=== PATIENT | male | born 1950 | race Caucasian/White ===

== ENCOUNTER 2020-05-25 08:21 | Day surgery (SDC) | payer MEDICARE, OTHER ==
[2020-05-22 12:13] VITALS: BMI 41.1
[~2020-05-25 08:21] MED LIST: BENZOCAINE SPRAY 1 CAN TOPICAL PRN; HYDROmorphone 0.5 MG/0.5 ML SYRINGE IVP PRN; LACTATED RINGERS 1,000 ML IV SCH; MIDAZOLAM 2 MG/2 ML VIAL IV ONE; SODIUM CHLORIDE 0.9% 1,000 ML IV SCH; fentaNYL (PF) 50 MCG/ML 2 ML AMP IVP ONE
[2020-05-25 08:52] LABS: Glucose,Whole Blood 127 mg/dL (75-99)
[2020-05-25 08:55] VITALS: TEMP 97
[2020-05-25] MEDS ORDERED: SODIUM CHLORIDE 0.9% 500 ML 500 ML IV ONE (09:00)
[2020-05-25 09:01] LABS: Basophils # (A) 0.1 k/uL (0-0.2); Basophils % (A) 1 %; Eosinophils # (A) 0.4 k/uL (0-0.7); Eosinophils % (A) 6 %; HCT 52.8 % (39.0-53.0); HGB 17.3 gm/dL (13.0-17.5); Lymphocytes % (A) 14 %; MCH 28.6 pg (25.0-35.0); MCHC 32.7 g/dL (31.0-37.0); MCV 87.4 fL (80.0-100.0); Mean Platelet Volume 9.1; Monocytes # (A) 0.4 k/uL (0-1.0); Monocytes % (A) 5 %; Neutrophils # (A) 5.5 k/uL (1.3-7.7); Neutrophils % (A) 73 %; Platelet Count 233 k/uL (150-450); RBC 6.04 m/uL (4.30-5.90); RDW 14.3 % (11.5-15.5); WBC 7.5 k/uL (3.8-10.6)
[2020-05-25] MEDS ORDERED: LIDOCAINE 1% INJ 10MG/ML (20 ML MDV) ONE (09:07)
[2020-05-25] MEDS ORDERED: PROPOFOL 10 MG/ML 20 ML VIAL IV ONE (09:07)
[2020-05-25 09:16] LABS: Calcium 8.8 mg/dL (8.4-10.2); Potassium 4.7 mmol/L (3.5-5.1)
[2020-05-25 09:24] LABS: Prothrombin Time 18.1 sec (9.0-12.0)
[2020-05-25 09:27] LABS: INR 1.8 (<1.2)
[2020-05-25] MEDS ORDERED: SODIUM CHLORIDE 0.9% 1,000 ML IV ONE (09:32)
[2020-05-25 09:46] VITALS: RESP 16
--- NOTE | 2020-05-25 12:31 | ECHOT ---
TRANSESOPHAGEAL ECHOCARDIOGRAM INDICATION: Permanent atrial fibrillation to rule out intracardiac thrombus prior to cardioversion. PROCEDURE NOTE: After obtaining informed consent, transesophageal echocardiogram is performed in left lateral position using an Omni plane probe. Local and IV sedation were obtained by the dredge hand. Patient tolerated the procedure well without any obvious immediate complications. FINDINGS: 1. There is no intracardiac thrombus within the left atrial appendage, left atrium, right atrium, right ventricle or right atrium. 2. Left ventricle has normal size and systolic function. 3. Mitral valve appears anatomically normal. There is mild to moderate central mitral regurgitation noted. 4. Interatrial septum, there is no evidence of oday-dc-odkan shunt by color-flow Doppler or naefx-af-jivk shunt by agitated saline contrast study. 5. Right atrium and right ventricle appear enlarged. 6. Aortic root measures normally. 7. Pericardium appears normal. 8. Tricuspid valve shows mild tricuspid regurgitation. 9. Aortic valve is a 3-leaflet valve. There is no aortic stenosis or regurgitation. CONCLUSION: 1. No intracardiac thrombus number. 2. Enlarged right atrium and right ventricle. PLAN: The patient was to undergo cardioversion, but his INR came back at 1.8 due to which the cardioversion was canceled. The patient's Coumadin dose is being adjusted on discharge. MMODL / IJN: [id number] /
[2020-05-25 17:50] VITALS: BP 130/79; PULSE 70
== END 2020-05-25 12:39 | disposition home or self-care (01) ==
LOC: CATHCVL 08:21
PROVIDERS: ATTEND Internal Medicine Cardiovascular Disease
DX: I48.21 Permanent atrial fibrillation (principal); I08.1 Rheumatic disorders of both mitral and tricuspid valves; I10 Essential (primary) hypertension; E11.9 Type 2 diabetes mellitus without complications; K21.9 Gastro-esophageal reflux disease without esophagitis; E07.9 Disorder of thyroid, unspecified; K08.409 Partial loss of teeth, unspecified cause, unspecified class; E78.5 Hyperlipidemia, unspecified; Z79.890 Hormone replacement therapy; Z79.899 Other long term (current) drug therapy; Z79.84 Long term (current) use of oral hypoglycemic drugs; Z88.8 Allergy status to other drugs, medicaments and biological substances; Z88.2 Allergy status to sulfonamides; Z98.890 Other specified postprocedural states; Z86.69 Personal history of other diseases of the nervous system and sense organs; Z85.819 Personal history of malignant neoplasm of unspecified site of lip, oral cavity, and pharynx; Z79.01 Long term (current) use of anticoagulants; Z82.49 Family history of ischemic heart disease and other diseases of the circulatory system
CPT/HCPCS: 93312; 93320; 93325; 80048; 85025; 85610; J2001; J2704